=== PATIENT | male | born 1940 | race Caucasian/White ===

== ENCOUNTER 2018-12-09 12:58 | Outpatient (CLI) | payer MEDICARE, BC ==
--- NOTE | 2018-12-09 14:18 | MRI ---
MRI lumbar spine. HISTORY: Back pain M54.16. Multiplanar multisequence noncontrast enhanced MRI images lumbar spine obtained. T12-L1: Unremarkable. L1-2: Mild facet hypertrophy is seen. The central canal and neural foramen are patent. L2-3: Disc desiccation seen. There is a broad-based disc osteophytye complex compressing the thecal sac resulting in moderate degree of thecal sac compression. There is mild bilateral neural foraminal narrowing due to facet hypertrophy as well as the broad-based disc osteophyte complex exten ding to the neural foramen. L3-4: Disc desiccation seen. No evidence of central stenosis seen. Bilateral facet hypertrophy is see n. This results in mild bilateral neural foraminal narrowing. L4-5: There is some disc desiccation. There is a broad-based disc bulge. No significant central steno sis seen. Marked facet hypertrophy seen at L4-5 bilaterally resulting in moderate to severe bilateral neural foraminal narrowing. L5-S1: There is a broad-based disc bulge seen. Severe facet hypertrophy seen. This results in minimal but not significant degree of central and lateral recess stenosis. Moderate bilateral neural foraminal narrowing seen. IMPRESSION: Multilevel disc desiccation with changes of spondylosis at L2-3, L3-4, L4-5 and L5-S1. Multilevel fac et hypertrophy also present. Transcribed Date/Time: 12/09/2018 2:24 PM
== END 2018-12-09 12:59 | disposition home or self-care (01) ==
LOC: BICMRI 12:58
PROVIDERS: ATTEND Nurse Practitioner Family
DX: M51.16 Intervertebral disc disorders with radiculopathy, lumbar region (principal); M51.17 Intervertebral disc disorders with radiculopathy, lumbosacral region; M47.26 Other spondylosis with radiculopathy, lumbar region; M47.27 Other spondylosis with radiculopathy, lumbosacral region
CPT/HCPCS: 72148